=== PATIENT | male | born 1965 | race Caucasian/White ===

== ENCOUNTER → 2017-03-06 | Outpatient (CLI) | payer OTHER | END | disposition home or self-care (01) | LOC: LAB.O 14:51 | PROVIDERS: ATTEND Nurse Practitioner Family | DX: I49.3 Ventricular premature depolarization (principal); I10 Essential (primary) hypertension; G03.9 Meningitis, unspecified ==

== ENCOUNTER → 2017-06-12 | Outpatient (CLI) | payer OTHER | END | disposition home or self-care (01) | LOC: LAB.O 09:43 | PROVIDERS: ATTEND Nurse Practitioner Family | DX: R68.89 Other general symptoms and signs (principal) ==

== ENCOUNTER → 2020-01-24 | Outpatient (CLI) | payer OTHER ==
--- NOTE | 2020-01-25 14:22 | CT ---
EXAM DESCRIPTION: Abdoment/Pelvis w/o Contrast: Computed Tomography. CLINICAL HISTORY: 54 years Male CALCULUS OF URETER COMPARISON: None. TECHNIQUE: Spiral-axial scans at 2.5 x 2.5 mm intervals through the abdomen and pelvis, prone position. Coronal and sagittal 2.0 mm reconstructions. No IV or oral contrast. Total Exam DLP: 502 mGy-cm. This exam was performed according to our departmental CT dose-optimization program which includes automated exposure control, adjustment of the mA and/or kV according to patient size and/or use of iterative reconstruction technique; to reduce radiation dose to as low as reasonably achievable (ALARA). FINDINGS: Kidneys and Ureters: 3 mm radiodense stone in the distal right ureter. This is just proximal to the right ureterovesical junction. Distal ureter is dilated measuring 6 mm with minimal periureteral edema. Prominent right extrarenal pelvis but proximal ureter not dilated. No hydronephrosis or perirenal fluid. Small cortical cyst. Prominent left extrarenal pelvis but left ureter is unremarkable. No hydronephrosis or perirenal fluid. No radiodense stones in the kidneys bilaterally. Pelvic Organs: No radiodense stones in the urinary bladder. Calcification in the prostate gland and on the margin of the gland. No free fluid in the anterior peritoneal reflection. Lung and pleura bases: Minimal lung base scarring. Liver, spleen, stomach, and adrenal glands: Long axis right lobe 18.1 cm. Normal liver density. Radiodense material abutting the anterior wall of the stomach gravity dependent. Other solid organs are negative. Pancreas, Gallbladder, Ducts: Gallbladder visualized. Duct and pancreas unremarkable. Aorta: Normal caliber. Small Bowel: Unremarkable. Terminal Ileum/Cecum: Fecal matter in the sacrum. Normal caliber of the common ileum. Normal caliber of the appendix with no fatty inflammatory changes. Colon: No distention. Scattered fecal matter. Mesentery: Density around the distal right ureter. Normal appearance of the fat around the bowel segments. Spine and Bony Pelvis: Disc space narrowing L5-S1. Endplate sclerosis and spurs on the margins in the lower thoracic spine. Abdominal Wall/Back Soft Tissues: Negative. IMPRESSION: 1. Partially obstructing radiodense 3 mm stone in the distal right ureter proximal to the ureterovesical junction. Proximal right ureter and right kidney are unremarkable. Negative findings in the left kidney, left ureter. No radiodense stones in the urinary bladder. 2. Mild hepatomegaly with normal density and smooth capsule with no ascites. 2. Minimal spondylosis in the lower thoracic spine. Minimal calcification in the prostate gland. Electronically signed by: Omid Gallegos MD 01/25/2020 2:21 PM CDT